=== PATIENT | female | born 1980 | race Caucasian/White ===

== ENCOUNTER → 2021-12-10 13:30 | Outpatient (CLI) | payer OTHER, SELFPAY ==
[2021-12-10 15:50] LABS: Urine N gonorrhoeae NOT DETECTED
[2021-12-10 15:51] LABS: Urine Chlamydia NOT DETECTED
== END ==
PROVIDERS: Visit Provider Nurse Practitioner Family
DX: R39.89 Other symptoms and signs involving the genitourinary system (principal)
CPT/HCPCS: 87077; 87086; 87186; 87210; 87491; 87591